=== PATIENT | female | born 1940 | race Caucasian/White ===

== ENCOUNTER → 2017-03-05 | Outpatient (CLI) | payer MEDICARE, MEDICAID ==
[~2017-03-05] MED LIST: ALBU17AE3; ASP325TEC; ATOR40TA; CARV12.52; CLPD75T; FRSM40T; KCL10CCR; LNS30CCR; TELM40T
[2017-03-05 10:52] LABS: BASOPHILS % (AUTO) 0 % (0-10); EOSINOPHILS # (AUTO) 0.1 10^3/uL (0.0-0.3); EOSINOPHILS % (AUTO) 2 % (0-10); LYMPHOCYTES # (AUTO) 0.7 X 10^3 (1.0-4.0); LYMPHOCYTES % (AUTO) 12 % (12-44); MEAN CORPUSCULAR HEMOGLOBIN 26 PG (25-34); MEAN CORPUSCULAR HGB CONC 31 G/DL (32-36); MEAN CORPUSCULAR VOLUME 84 FL (80-99); MEAN PLATELET VOLUME 11.2 FL (7.4-10.4); MONOCYTES # (AUTO) 0.5 X 10^3 (0.0-1.0); MONOCYTES % (AUTO) 9 % (0-12); NEUTROPHILS % (AUTO) 76 % (42-75); PLATELET COUNT 126 10^3/uL (130-400); RED BLOOD COUNT 4.82 10^6/uL (4.35-5.85); RED CELL DISTRIBUTION WIDTH 18.4 % (10.0-14.5); WHITE BLOOD COUNT 5.3 10^3/uL (4.3-11.0)
[2017-03-05 11:16] LABS: ALBUMIN 4.2 G/DL (3.2-4.5); BILIRUBIN,TOTAL 1.8 MG/DL (0.1-1.0); CALCIUM 10.8 MG/DL (8.5-10.1); CREATININE SERUM 1.49 MG/DL (0.60-1.30); POTASSIUM 4.5 MMOL/L (3.6-5.0); TOTAL PROTEIN 7.8 G/DL (6.4-8.2)
== END ==
LOC: LAB 10:12
PROVIDERS: ATTEND Surgery
DX: E11.622 Type 2 diabetes mellitus with other skin ulcer (principal); I89.0 Lymphedema, not elsewhere classified; N18.3 Chronic kidney disease, stage 3 (moderate); I25.10 Atherosclerotic heart disease of native coronary artery without angina pectoris; I73.9 Peripheral vascular disease, unspecified
CPT/HCPCS: 36415; 80053; 80061; 83036; 85025

== ENCOUNTER 2017-03-12 08:35 | Outpatient (RCR) | payer MEDICARE, MEDICAID ==
[2017-03-25] MEDS ORDERED: METF500T4 PO (14:26)
[2017-03-25] MEDS ORDERED: NITR1OIN TD (14:27)
[2017-03-25] MEDS ORDERED: GLYB1.5T2 PO (14:27)
[2017-03-25] MEDS ORDERED: FURO40TA4 PO (17:34)
[2017-03-25] MEDS ORDERED: CLOP75TA28 PO (17:34)
[2017-03-25] MEDS ORDERED: NITR0.4T39 PO (17:34)
[2017-03-25] MEDS ORDERED: METF500T8 PO (17:34)
[2017-03-25] MEDS ORDERED: ALBU18HF2 IH (17:34)
[2017-03-25] MEDS ORDERED: GLYB1.253 PO (17:34)
[2017-03-31] MEDS ORDERED: ATOR80TA76 PO (09:46)
[2017-03-31] MEDS ORDERED: HYDR-3812 PO (09:46)
[2017-03-31] MEDS ORDERED: PANT40TA3 PO (09:46)
[2017-04-17] MEDS ORDERED: LEVO750T39 PO (12:57)
[2017-04-17] MEDS ORDERED: INSU100V5 SQ (13:19)
== END 2017-03-31 16:00 | disposition home or self-care (01) ==
LOC: WOUNDCARE 08:35
PROVIDERS: ATTEND Internal Medicine
DX: I89.0 Lymphedema, not elsewhere classified (principal); E11.622 Type 2 diabetes mellitus with other skin ulcer; N18.3 Chronic kidney disease, stage 3 (moderate); I25.10 Atherosclerotic heart disease of native coronary artery without angina pectoris; I73.9 Peripheral vascular disease, unspecified
CPT/HCPCS: 99205; 99214

== ENCOUNTER 2017-03-25 13:40 | Inpatient (IN) | payer MEDICARE, MEDICAID ==
[2017-03-25] MEDS ORDERED: METF500T4 PO (14:26)
[2017-03-25] MEDS ORDERED: GLYB1.5T2 PO (14:27)
[2017-03-25] MEDS ORDERED: NITR1OIN TD (14:27)
[2017-03-25] MEDS ORDERED: NS IV 1000 ML 1,000 ML IV SCH (14:45)
[2017-03-25] MEDS ORDERED: PANTOPRAZOLE 40 MG/10 ML (PROTONIX) VIAL IV ONE (14:45)
[2017-03-25] MEDS ORDERED: fentaNYL INJECTION 100 MCG/2 ML AMP ONE ×2 (15:08→17:20)
[2017-03-25] MEDS ORDERED: fentaNYL INJECTION 100 MCG/2 ML AMP IVP ONE (15:15)
[2017-03-25] MEDS ORDERED: FUROSEMIDE 40 MG/4 ML INJ (LASIX) IVP ONE (15:45)
[2017-03-25] MEDS ORDERED: NS (IVPB) 250 ML ONE (16:33)
[2017-03-25] MEDS ORDERED: CATHETER FLUSH 10 ML SYR IV PRN (16:45)
[2017-03-25] MEDS ORDERED: NS IV 500 ML 500 ML IV SCH (16:45)
[2017-03-25] MEDS ORDERED: MIDAZOLAM 2 MG/2 ML (VERSED) VIAL ONE ×4 (17:01→17:20)
[2017-03-25] MEDS ORDERED: proPOfol 200 MG/20 ML (DIPRIVAN) VIAL IV ONE ×2 (17:01→18:22)
[2017-03-25] MEDS ORDERED: HURRICAINE EXT TUBE (BENZOCAINE) ONE (17:20)
[2017-03-25] MEDS ORDERED: EPINEPHrine INJECTION 1 MG/ML AMP ONE (17:21)
[2017-03-25] MEDS ORDERED: METF500T8 PO (17:34)
[2017-03-25] MEDS ORDERED: GLYB1.253 PO (17:34)
[2017-03-25] MEDS ORDERED: CLOP75TA28 PO (17:34)
[2017-03-25] MEDS ORDERED: NITR0.4T39 PO (17:34)
[2017-03-25] MEDS ORDERED: FURO40TA4 PO (17:34)
[2017-03-25] MEDS ORDERED: ALBU18HF2 IH (17:34)
[2017-03-25] MEDS ORDERED: FLUMAZENIL (ROMAZICON) 0.1 MG/ML 5 ML VIAL ONE (18:07)
[2017-03-25] MEDS: morphine INJ 4 MG/ML 1 ML (VIAL/SYRINGE) IVP PRN ×2 (20:48→23:29)
[2017-03-25] MEDS: ATORVASTATIN 80 MG (LIPITOR) TABLET PO SCH (20:50)
[2017-03-25] MEDS ORDERED: PANTOPRAZOLE 40 MG/10 ML (PROTONIX) VIAL IV SCH (21:00)
[2017-03-25] MEDS ORDERED: meTOprolol TARTRATE 25 MG (LOPRESSOR) TABLET PO SCH (21:00)
[2017-03-25] MEDS: NS IV 1000 ML 1,000 ML IV SCH (23:47)
[2017-03-25] MEDS: PANTOPRAZOLE INJECTION 200 MG in NS (IVPB) 50 ML IV SCH (23:47)
[2017-03-26] MEDS: NS IV 1000 ML 1,000 ML IV SCH ×3 (02:47→20:30)
[2017-03-26] MEDS: morphine INJ 4 MG/ML 1 ML (VIAL/SYRINGE) IVP PRN ×4 (04:58→18:38)
[2017-03-26] MEDS: MAGNESIUM 1 GM/100 ML IVPB 100 ML IV SCH (05:24)
[2017-03-26] MEDS: POTASSIUM CL 10MEQ/50ML IVPB 50 ML IV SCH (05:24)
[2017-03-26] MEDS: KCL 20 MEQ TAB (K-DUR) PO SCH (05:27)
[2017-03-26] MEDS ORDERED: FUROSEMIDE 40 MG/4 ML INJ (LASIX) IVP NR (14:00)
[2017-03-26] MEDS: PANTOPRAZOLE INJECTION 200 MG in NS (IVPB) 50 ML IV SCH (18:38)
[2017-03-26] MEDS ORDERED: NS (IVPB) 250 ML ONE (18:46)
[2017-03-26] MEDS: ATORVASTATIN 80 MG (LIPITOR) TABLET PO SCH (20:30)
[2017-03-26] MEDS ORDERED: FUROSEMIDE 40 MG/4 ML INJ (LASIX) ONE (21:44)
[2017-03-27] MEDS ORDERED: NS (IVPB) 250 ML ONE (01:40)
[2017-03-27] MEDS: morphine INJ 4 MG/ML 1 ML (VIAL/SYRINGE) IVP PRN ×3 (05:21→13:23)
[2017-03-27] MEDS ORDERED: FUROSEMIDE 40 MG/4 ML INJ (LASIX) IV ONE (05:30)
[2017-03-27] MEDS: NS IV 1000 ML 1,000 ML IV SCH ×2 (06:20→17:24)
[2017-03-27] MEDS: POTASSIUM CL 10MEQ/50ML IVPB 50 ML IV SCH (10:05)
[2017-03-27] MEDS: MAGNESIUM 1 GM/100 ML IVPB 100 ML IV SCH (10:06)
[2017-03-27] MEDS: KCL 20 MEQ TAB (K-DUR) PO SCH (10:06)
[2017-03-27] MEDS: HYDROcodone/APAP 5 MG/325 MG (LORTAB) TAB PO PRN (13:22)
[2017-03-27] MEDS: PANTOPRAZOLE 40 MG/10 ML (PROTONIX) VIAL IV SCH ×2 (13:23→20:28)
[2017-03-27] MEDS: ATORVASTATIN 80 MG (LIPITOR) TABLET PO SCH (20:28)
[2017-03-28] MEDS: NS IV 1000 ML 1,000 ML IV SCH (03:33)
[2017-03-28] MEDS: POTASSIUM CL 10MEQ/50ML IVPB 50 ML IV SCH (04:56)
[2017-03-28] MEDS: KCL 20 MEQ TAB (K-DUR) PO SCH (04:56)
[2017-03-28] MEDS: MAGNESIUM 1 GM/100 ML IVPB 100 ML IV SCH (04:56)
[2017-03-28] MEDS: PANTOPRAZOLE 40 MG (PROTONIX) TAB PO SCH ×2 (05:53→17:37)
[2017-03-28] MEDS: HYDROcodone/APAP 5 MG/325 MG (LORTAB) TAB PO PRN (13:30)
[2017-03-28] MEDS: ATORVASTATIN 80 MG (LIPITOR) TABLET PO SCH (21:02)
[2017-03-29] MEDS: HYDROcodone/APAP 5 MG/325 MG (LORTAB) TAB PO PRN (01:12)
[2017-03-29] MEDS: PANTOPRAZOLE 40 MG (PROTONIX) TAB PO SCH ×2 (06:15→16:02)
[2017-03-29] MEDS: ATORVASTATIN 80 MG (LIPITOR) TABLET PO SCH (21:00)
[2017-03-30] MEDS: PANTOPRAZOLE 40 MG (PROTONIX) TAB PO SCH ×2 (06:20→17:38)
[2017-03-30] MEDS: ATORVASTATIN 80 MG (LIPITOR) TABLET PO SCH (21:34)
[2017-03-30] MEDS: morphine INJ 4 MG/ML 1 ML (VIAL/SYRINGE) IVP PRN (21:37)
[2017-03-31] MEDS: PANTOPRAZOLE 40 MG (PROTONIX) TAB PO SCH (05:58)
[2017-03-31] MEDS ORDERED: PANT40TA3 PO (09:46)
[2017-03-31] MEDS ORDERED: HYDR-3812 PO (09:46)
[2017-03-31] MEDS ORDERED: ATOR80TA76 PO (09:46)
[2017-03-31] MEDS: morphine INJ 4 MG/ML 1 ML (VIAL/SYRINGE) IVP PRN (14:23)
== END 2017-03-31 15:02 | DRG 811 ==
DX: D62 Acute posthemorrhagic anemia (principal); I13.0 Hypertensive heart and chronic kidney disease with heart failure and stage 1 through stage 4 chronic kidney disease, or unspecified chronic kidney disease; I50.21 Acute systolic (congestive) heart failure; I21.4 Non-ST elevation (NSTEMI) myocardial infarction; N18.3 Chronic kidney disease, stage 3 (moderate); K25.4 Chronic or unspecified gastric ulcer with hemorrhage; K26.4 Chronic or unspecified duodenal ulcer with hemorrhage; N17.9 Acute kidney failure, unspecified; Z66 Do not resuscitate; L97.229 Non-pressure chronic ulcer of left calf with unspecified severity; L97.219 Non-pressure chronic ulcer of right calf with unspecified severity; E66.01 Morbid (severe) obesity due to excess calories; Z68.41 Body mass index [BMI] 40.0-44.9, adult; I25.5 Ischemic cardiomyopathy; I25.10 Atherosclerotic heart disease of native coronary artery without angina pectoris; E11.22 Type 2 diabetes mellitus with diabetic chronic kidney disease; M19.91 Primary osteoarthritis, unspecified site; I89.0 Lymphedema, not elsewhere classified; I87.8 Other specified disorders of veins; K44.9 Diaphragmatic hernia without obstruction or gangrene; R53.81 Other malaise; D69.6 Thrombocytopenia, unspecified; Z79.84 Long term (current) use of oral hypoglycemic drugs; Z87.891 Personal history of nicotine dependence

== ENCOUNTER 2017-04-13 20:41 | Inpatient (IN) | payer MEDICARE, MEDICAID ==
[~2017-04-13] VITALS: Ht 172.7 cm; Wt 138.0 kg
[~2017-04-13 20:41] MED LIST changes: -ATOR80TA64 PO; -DOCU-143 PO; -INSU100V5 SQ; -LEVO750T39 PO; -PANT40TA2 PO; -SILV20CR14 TP
--- NOTE | 2017-04-13 20:54 | ED General ---
General Stated Complaint: LOW BLOOD SUGAR Source of Information: Patient Exam Limitations: No Limitations History of Present Illness Time Seen by Provider: 20:52 Initial Comments To ER per EMS from [facility] with unresponsiveness and "foaming at the mouth". Upon arrival EMS found her blood sugar to be "low" on the common her. She was given 25 g of glucose IV. EMS reports that her initial blood pressure was 60s over 40s. On Arrival to ER her blood sugar is 108 and she is now alert and responsive and talking though her speech is still somewhat slurred and difficult to understand. She was recently released from this hospital following an admission for gastrointestinal hemorrhage and in STEMI with a troponin of 40. She underwent upper endoscopy and found to have hemorrhage within the stomach that had stopped by the time of EGD. Given blood transfusion. She is a DO NOT RESUSCITATE status. Timing/Duration: 1 Hour Severity: Moderate Allergies and Home Medications Allergies Coded Allergies: Penicillins (Verified Allergy, Unknown, 03/25/17) amlodipine (Verified Allergy, Unknown, 12/02/07) ezetimibe (Verified Allergy, Unknown, 12/02/07) niacin (Verified Allergy, Unknown, 12/02/07) simvastatin (Verified Allergy, Unknown, 12/02/07) Home Medications Albuterol Sulfate 18 Gm Hfa.aer.ad, 2 PUFF IH Q6H PRN for SHORTNESS OF BREATH, ( Reported) Atorvastatin Calcium 80 Mg Tablet, 40 MG PO HS, #30 Prescribed by: ROXANE LEE on 03/31/17 0946 Clopidogrel Bisulfate 75 Mg Tablet, 75 MG PO DAILY, (Reported) Furosemide 40 Mg Tablet, 80 MG PO DAILY, (Reported) TAKES 2 (40 MG) TABLETS Glyburide 1.25 Mg Tablet, 1.25 MG PO BID PRN for BLOOD SUGAR, (Reported) DOES NOT TAKE IS BLOOD SUGAR IS 120 OR BELOW Hydrocodone/Acetaminophen 1 Each Tablet, 1 TAB PO Q6HR PRN for PAIN-MODERATE, # 30 Prescribed by: ROXANE LEE on 03/31/17 0946 Metformin HCl 500 Mg Tab.er.24h, 500 MG PO BID PRN for BLOOD SUGAR , (Reported) DOES NOT TAKE IF BLOOD SUGAR IS 120 OR BELOW Nitroglycerin 0.4 Mg Tab.subl, 1 TAB PO UD, (Reported) PLACE 1 TABLET UNDER TONGUE EVERY 5 MINUTES PRF CHEST PAIN Pantoprazole Sodium 40 Mg Tablet.dr, 40 MG PO BID@0700,1700 for 30 Days Prescribed by: ROXANE LEE on 03/31/17 0946 Constitutional: see HPI EENTM: see HPI Respiratory: no symptoms reported Cardiovascular: no symptoms reported Genitourinary: no symptoms reported Musculoskeletal: no symptoms reported Skin: no symptoms reported Psychiatric/Neurological: No Symptoms Reported Past Hpuoixy-Yijcje-Rofelp Hx Patient Social History 2nd Hand Smoke Exposure: No Recent Hopitalizations: No Seasonal Allergies Seasonal Allergies: Yes (RAGWEED, COTTONWOOD) Surgeries HX Surgeries: Yes Surgeries: Gallbladder Respiratory Hx Respiratory Disorders: No Respiratory Disorders: COPD Cardiovascular Hx Cardiac Disorders: Yes Cardiac Disorders: Chronic Edema/Swelling, Coronary Artery Disease, Hypertension Neurological Hx Neurological Disorders: No Reproductive System Hx Reproductive Disorders: No Sexually Transmitted Disease: No Genitourinary Hx Genitourinary Disorders: No Gastrointestinal Hx Gastrointestinal Disorders: Yes Gastrointestinal Disorders: Gall Bladder Disease Musculoskeletal Hx Musculoskeletal Disorders: Yes Musculoskeletal Disorders: Arthritis Endocrine Hx Endocrine Disorders: Yes Endocrine Disorders: Diabetes, Non-Insulin dep HEENT HX ENT Disorders: Yes (FATTY GROWTH REMOVED FROM THROAT 1990) Cancer Hx Cancer: No Psychosocial Hx Psychiatric Problems: No Integumentary HX Skin/Integumentary Disorder: No Blood Transfusions Adverse Reaction to a Blood Tr: No Family Medical History Significant Family History: CAD Over 55 Years Old, Diabetes Physical Exam Vital Signs Vital Sign - Last 12Hours 04/13/17 20:45 Temp 97.7 Pulse 61 Resp 18 B/P (MAP) 100/45 Pulse Ox 97 O2 Delivery Nasal Cannula O2 Flow Rate 2.00 Capillary Refill : General Appearance: No Apparent Distress, WD/WN, Chronically ill, Obese Eyes: Bilateral Eye EOMI, Bilateral Eye Normal Inspection, Bilateral Eye PERRL HEENT: PERRL/EOMI, TMs Normal Neck: Full Range of Motion, Normal Inspection Respiratory: Normal Breath Sounds, No Accessory Muscle Use, No Respiratory Distress Cardiovascular: Regular Rate, Rhythm, Normal Peripheral Pulses Neurologic/Psychiatric: Alert, Oriented x3 Skin: Normal Color, Warm/Dry Comments She is alert and oriented and talkative and answers questions appropriately though her speech is somewhat slurred and difficult to understand. Her blood sugar is 108 here. Borderline hypotensive still however at 100/65. Focused Exam Lactic Acid Level Laboratory Tests Test 04/13/17 21:25 Lactic Acid Level 1.05 MMOL/L (0.50-2.00) Progress/Results/Core Measures Results/Orders Lab Results Laboratory Tests Test 04/13/17 20:35 04/13/17 20:46 04/13/17 21:10 04/13/17 21:25 Range/Units White Blood Count 26.1 H 4.3-11.0 10^3/uL Red Blood Count 3.42 L 4.35-5.85 10^6/uL Hemoglobin 9.0 L 11.5-16.0 G/DL Hematocrit 28 L 35-52 % Mean Corpuscular Volume 82 80-99 FL Mean Corpuscular Hemoglobin 26 25-34 PG Mean Corpuscular Hemoglobin Concent 32 32-36 G/DL Red Cell Distribution Width 18.8 H 10.0-14.5 % Platelet Count 192 130-400 10^3/uL Mean Platelet Volume 11.7 H 7.4-10.4 FL Neutrophils (%) (Auto) 97 H 42-75 % Lymphocytes (%) (Auto) 1 L 12-44 % Monocytes (%) (Auto) 2 0-12 % Eosinophils (%) (Auto) 0 0-10 % Basophils (%) (Auto) 0 0-10 % Neutrophils # (Auto) 25.1 H 1.8-7.8 X 10^3 Lymphocytes # (Auto) 0.3 L 1.0-4.0 X 10^3 Monocytes # (Auto) 0.6 0.0-1.0 X 10^3 Eosinophils # (Auto) 0.0 0.0-0.3 10^3/uL Basophils # (Auto) 0.0 0.0-0.1 10^3/uL Neutrophils % (Manual) 71 % Lymphocytes % (Manual) 0 % Monocytes % (Manual) 0 % Eosinophils % (Manual) 0 % Basophils % (Manual) 0 % Band Neutrophils 29 % Blood Morphology Comment NORMAL Sodium Level 128 L 135-145 MMOL/L Potassium Level 6.2 H 3.6-5.0 MMOL/L Chloride Level 102 98-107 MMOL/L Carbon Dioxide Level 15 L 21-32 MMOL/L Anion Gap 11 5-14 MMOL/L Blood Urea Nitrogen 91 H 7-18 MG/DL Creatinine 2.98 H 0.60-1.30 MG/DL Estimat Glomerular Filtration Rate 15 BUN/Creatinine Ratio 31 Glucose Level 91 70-105 MG/DL Calcium Level 9.5 8.5-10.1 MG/DL Total Bilirubin 1.2 H 0.1-1.0 MG/DL Aspartate Amino Transf (AST/SGOT) 62 H 5-34 U/L Alanine Aminotransferase (ALT/SGPT) 36 0-55 U/L Alkaline Phosphatase 156 H 40-136 U/L Troponin I 0.62 *H <0.30 NG/ML Total Protein 6.3 L 6.4-8.2 GM/DL Albumin 2.6 L 3.2-4.5 GM/DL Glucometer 108 70-110 MG/DL Urine Color YELLOW Urine Clarity SLIGHTLY CLOUDY Urine pH 5 5-9 Urine Specific [place] 1.015 L 1.016-1.022 Urine Protein 2+ H NEGATIVE Urine Glucose (UA) NEGATIVE NEGATIVE Urine Ketones NEGATIVE NEGATIVE Urine Nitrite NEGATIVE NEGATIVE Urine Bilirubin 1+ H NEGATIVE Urine Urobilinogen 1 NORMAL MG/DL Urine Leukocyte Esterase 2+ H NEGATIVE Urine RBC (Auto) 3+ H NEGATIVE Urine RBC 2-5 H /HPF Urine WBC 5-10 H /HPF Urine Crystals NONE /LPF Urine Bacteria LARGE H /HPF Urine Casts NONE /LPF Urine Mucus NEGATIVE /LPF Urine Culture Indicated YES Lactic Acid Level 1.05 0.50-2.00 MMOL/L My Orders Orders - PRAFUL SHARPE APRN Cbc With Automated Diff (04/13/17 20:51) Comprehensive Metabolic Panel (04/13/17 20:51) Chest 1 View, Ap/Pa Only (04/13/17 20:51) Ekg Tracing (04/13/17 20:51) Troponin I (04/13/17 20:51) Manual Differential (04/13/17 20:35) Accucheck Stat ONCE (04/13/17 21:05) Ua Culture If Indicated (04/13/17 21:11) Blood Culture (04/13/17 21:19) Lactic Acid Analyzer (04/13/17 21:19) Urine Culture (04/13/17 21:10) Jin Cath Insertion (04/13/17 21:33) Vital Signs/I&O Vital Sign - Last 12Hours 04/13/17 20:45 Temp 97.7 Pulse 61 Resp 18 B/P (MAP) 100/45 Pulse Ox 97 O2 Delivery Nasal Cannula O2 Flow Rate 2.00 Diagnostic Imaging Diagonstic Imaging: Xray Plain Films/CT/US/NM/MRI: chest Comments NAME: [facility] REC#: [id number] PT STATUS: REG ER : 1940 PHYSICIAN: PRAFUL SHARPE APRN ADMIT DATE: 04/13/17/ER Draft Date of Exam:04/13/17 CHEST 1 VIEW, AP/PA ONLY INDICATION: Low blood sugar. EXAMINATION: Chest 04/13/2017. COMPARISON: 03/28/2017. FINDINGS: There is cardiomegaly with pulmonary vasculature congestion. There are findings of edema throughout both lungs with atelectasis or infiltrate in the left lung base. A small effusion is also seen. There is no pneumothorax. IMPRESSION: 1. Pulmonary edema with left base atelectasis or infiltrate as well as small adjacent effusion. Dictated on workstation # [id number] Dict: 04/13/172133 Trans: 04/13/172137 [id number] Interpreted by: EMY BELTRE MD Electronically signed by: Departure Communication Time/Spoke to Admitting Phy: 22:[address] Stephens. We'll admit the patient. Current blood pressure 117/76, heart rate 56, O2 95 percent. We will give one dose of IV Lasix 40 mg. Repeat labs in the morning. Progress Notes I discussed with the patient's ypmffw-df-qzp Heena. Discussed with the patient that we cannot treat the heart failure with much Lasix as this will worsen the hypotension. We cannot give fluids for the hypotension because this will worsen her pulmonary congestion. Antibiotics are unlikely to be helpful here. I did suggest hospice but her xsbpqb-bj-fwy Heena would like the patient to be admitted for IV antibiotics and pursue hospice a later date. Patient is agreeable to whatever her yiwpfe-zh-opl prefers. Impression Impression: Primary Impression: end stage congestive heart failure Additional Impressions: Urinary tract infection Chronic renal failure Cellulitis of lower extremity Disposition: ADMITTED INPATIENT Condition: Critical Decision to Admit Reason: Admit from ER (General) Decision to Admit/Date: Apr 13, 2017 Time/Decision to Admit Time: 22:17 Departure-Patient Inst. Referrals: NO,LOCAL PHYSICIAN (PCP) Primary Care Physician AKSHAT NAVARRETE (Family) Primary Care Physician PRAFUL SHARPE APRN Apr 13, 2017 20:54
[2017-04-13 21:02] LABS: BASOPHILS % (AUTO) 0 % (0-10); EOSINOPHILS % (AUTO) 0 % (0-10); LYMPHOCYTES # (AUTO) 0.3 X 10^3 (1.0-4.0); LYMPHOCYTES % (AUTO) 1 % (12-44); MEAN CORPUSCULAR HEMOGLOBIN 26 PG (25-34); MEAN CORPUSCULAR HGB CONC 32 G/DL (32-36); MEAN CORPUSCULAR VOLUME 82 FL (80-99); MEAN PLATELET VOLUME 11.7 FL (7.4-10.4); MONOCYTES # (AUTO) 0.6 X 10^3 (0.0-1.0); MONOCYTES % (AUTO) 2 % (0-12); NEUTROPHILS # (AUTO) 25.1 X 10^3 (1.8-7.8); NEUTROPHILS % (AUTO) 97 % (42-75); PLATELET COUNT 192 10^3/uL (130-400); RED BLOOD COUNT 3.42 10^6/uL (4.35-5.85); RED CELL DISTRIBUTION WIDTH 18.8 % (10.0-14.5); WHITE BLOOD COUNT 26.1 10^3/uL (4.3-11.0)
[2017-04-13 21:19] LABS: BAND NEUTROPHILS 29 %; BASOPHILS % (MANUAL) 0 %; EOSINOPHILS % (MANUAL) 0 %; LYMPHOCYTES % (MANUAL) 0 %; NEUTROPHILS % (MANUAL) 71 %
[2017-04-13 21:23] LABS: ALBUMIN 2.6 GM/DL (3.2-4.5); BILIRUBIN,TOTAL 1.2 MG/DL (0.1-1.0); CALCIUM 9.5 MG/DL (8.5-10.1); CREATININE SERUM 2.98 MG/DL (0.60-1.30); POTASSIUM 6.2 MMOL/L (3.6-5.0); TOTAL PROTEIN 6.3 GM/DL (6.4-8.2)
[2017-04-13 21:25] LABS: BILIRUBIN,URINE 1+ (NEGATIVE); KETONES,URINE NEGATIVE (NEGATIVE); LEUKOCYTE ESTERASE ,URINE 2+ (NEGATIVE); NITRITE,URINE NEGATIVE (NEGATIVE); PH,URINE 5 (5-9); PROTEIN,URINE 2+ (NEGATIVE); UROBILINOGEN,URINE 1 MG/DL (NORMAL)
--- NOTE | 2017-04-13 21:38 | Diagnostic Imaging Report ---
INDICATION: Low blood sugar. EXAMINATION: Chest 04/13/2017. COMPARISON: 03/28/2017. FINDINGS: There is cardiomegaly with pulmonary vasculature congestion. There are findings of edema throughout both lungs with atelectasis or infiltrate in the left lung base. A small effusion is also seen. There is no pneumothorax. IMPRESSION: 1. Pulmonary edema with left base atelectasis or infiltrate as well as small adjacent effusion. Dictated by: Dictated on workstation # [id number]
[2017-04-13 22:00] LABS: TROPONIN I 0.62 NG/ML (<0.30)
[2017-04-13] MEDS ORDERED: cefTRIAXone INJECTION 1,000 MG in NS (IVPB) 50 ML IV ONE (22:30)
[2017-04-13] MEDS ORDERED: FUROSEMIDE 40 MG/4 ML INJ (LASIX) IVP ONE (22:30)
[2017-04-13 22:50] VITALS: BP 123/74
[2017-04-13 23:00] VITALS: BP 99/68
[2017-04-13 23:15] VITALS: BP 120/56
[2017-04-13 23:30] VITALS: BP 89/65
[2017-04-14] VITALS (14 sets, daily range): BP systolic 80–135; BP diastolic 34–84
[2017-04-14] MEDS: PANTOPRAZOLE 40 MG/10 ML (PROTONIX) VIAL IV SCH ×2 (00:54→08:35)
[2017-04-14] MEDS ORDERED: RT-ALBUTEROL SULF 2.5 MG/3 ML PRE-MIX VIAL IH PRN (02:15)
[2017-04-14 04:17] LABS: BASOPHILS % (AUTO) 0 % (0-10); EOSINOPHILS % (AUTO) 0 % (0-10); LYMPHOCYTES # (AUTO) 0.5 X 10^3 (1.0-4.0); LYMPHOCYTES % (AUTO) 2 % (12-44); MEAN CORPUSCULAR HEMOGLOBIN 26 PG (25-34); MEAN CORPUSCULAR HGB CONC 31 G/DL (32-36); MEAN CORPUSCULAR VOLUME 82 FL (80-99); MEAN PLATELET VOLUME 10.7 FL (7.4-10.4); MONOCYTES # (AUTO) 0.8 X 10^3 (0.0-1.0); MONOCYTES % (AUTO) 3 % (0-12); NEUTROPHILS # (AUTO) 25.9 X 10^3 (1.8-7.8); NEUTROPHILS % (AUTO) 95 % (42-75); PLATELET COUNT 158 10^3/uL (130-400); RED BLOOD COUNT 3.43 10^6/uL (4.35-5.85); WHITE BLOOD COUNT 27.2 10^3/uL (4.3-11.0)
[2017-04-14 04:38] LABS: ALBUMIN 2.8 GM/DL (3.2-4.5); BILIRUBIN,TOTAL 1.2 MG/DL (0.1-1.0); CALCIUM 9.6 MG/DL (8.5-10.1); CREATININE SERUM 2.91 MG/DL (0.60-1.30); POTASSIUM 5.9 MMOL/L (3.6-5.0); TOTAL PROTEIN 6.2 GM/DL (6.4-8.2)
[2017-04-14] MEDS: inSUlin (REGULAR) HUMAN 1 UNIT/0.01 ML (CHARGE PER UNIT) SC SCH ×4 (05:55→22:12)
--- NOTE | 2017-04-14 08:27 | History & Physical ---
History of Present Illness History of Present Illness Reason for visit/HPI 76-year-old female with chronic kidney disease, congestive systolic congestive heart failure, diabetes and anemia admitted late last evening for acute systolic systolic congestive heart failure and acute on chronic renal failure. Patient was brought to the ER from [facility] secondary to hypoglycemic episode. Staff at [facility] found patient slumped over in bed unresponsive. Pupils were reported to be nonreactive and she was reported to be foaming at the mouth. Bedside blood sugar did not register on glucometer; EMS arrived and administered 25 g of glucose IV. On arrival patient 's blood sugar was 108 at the ER and patient was alert and responsive and talking coherently. The day prior to this she was noted to have low oxygen and was placed on 2 L with oxygen saturations remaining in the 97-98 percent range. Patient has oxygen prn as she had supplemental oxygen at the previous hospitalization in mid March. Previous hospitalization, March 26-2016- was for acute GI bleed with noted ulcers seen in the stomach with EGD. Her hemoglobin was down in the fives and received multiple blood transfusions. She was also found to have NSTEMI, kidney failure, heart failure, leg wounds. Of note for this hospitalization patient is taking glyburide and metformin both of which are likely contributing to her acute on chronic renal failure. More specifically the glyburide is likely causing her hypoglycemic episode as it is not being sufficiently cleared by the kidneys. Patient admitted for further workup and evaluation as recommended on previous hospitalization patient should consider palliative care given her multiple comorbidities. Patient was seen by hospitalist service on previous admission but given that the recommendation was hospice at that time patient's family members transferred her care to my service. In evaluating patient's case I would recommend not pursuing aggressive therapy and a palliative care consult has been placed. In the interval will try D5 normal saline to keep her blood sugar up, hydrate kidneys and raise her sodium level. We'll counter the IVF with with Lasix to diurese and low potassium. Will be a difficult case given her congestive heart failure and renal failure. This plan has been discussed with the patient no family members were at bedside. Patient is in agreeance of the plan. -This AM pt reports doing alright; she just wants something for her leg pain. Date of Admission Apr 13, 2017 at 22:14 Time Seen by Provider: 07:30 I consulted on this patient on 04/14/17 08:13 Attending Physician Hernando Phelps MD Admitting Physician No,Local Physician Consult Allergies and Home Medications Allergies Coded Allergies: Penicillins (Verified Allergy, Unknown, 03/25/17) amlodipine (Verified Allergy, Unknown, 12/02/07) egg (Verified Allergy, Unknown, 04/13/17) "throat swelling" ezetimibe (Verified Allergy, Unknown, 12/02/07) niacin (Verified Allergy, Unknown, 12/02/07) simvastatin (Verified Allergy, Unknown, 12/02/07) Home Medications Albuterol Sulfate 18 Gm Hfa.aer.ad, 2 PUFF IH Q6H PRN for SHORTNESS OF BREATH, ( Reported) Atorvastatin Calcium 80 Mg Tablet, 40 MG PO HS, #30 Prescribed by: ROXANE LEE on 03/31/17 0946 Clopidogrel Bisulfate 75 Mg Tablet, 75 MG PO DAILY, (Reported) Furosemide 40 Mg Tablet, 80 MG PO DAILY, (Reported) TAKES 2 (40 MG) TABLETS Glyburide 1.25 Mg Tablet, 1.25 MG PO BID PRN for BLOOD SUGAR, (Reported) DOES NOT TAKE IS BLOOD SUGAR IS 120 OR BELOW Hydrocodone/Acetaminophen 1 Each Tablet, 1 TAB PO Q6HR PRN for PAIN-MODERATE, # 30 Prescribed by: ROXANE LEE on 03/31/17 0946 Metformin HCl 500 Mg Tab.er.24h, 500 MG PO BID PRN for BLOOD SUGAR , (Reported) DOES NOT TAKE IF BLOOD SUGAR IS 120 OR BELOW Nitroglycerin 0.4 Mg Tab.subl, 1 TAB PO UD, (Reported) PLACE 1 TABLET UNDER TONGUE EVERY 5 MINUTES PRF CHEST PAIN Pantoprazole Sodium 40 Mg Tablet.dr, 40 MG PO BID@0700,1700 for 30 Days Prescribed by: ROXANE LEE on 03/31/17 0946 Past Hwkqojy-Kekyrj-Xmemzq Hx Patient Social History Alcohol Use: Denies Use Recreational Drug Use: No Smoking Status: Former Smoker 2nd Hand Smoke Exposure: No Physical Abuse Screen: No Sexual Abuse: No Recent Foreign Travel: No Contact w/other who traveled: No Recent Hopitalizations: Yes Recent Infectious Disease Expo: No Immunizations Up To Date Tetanus Booster (TDap): Unknown Seasonal Allergies Seasonal Allergies: Yes (RAGWEED, COTTONWOOD) Surgeries HX Surgeries: Yes Surgeries: Gallbladder Respiratory Hx Respiratory Disorders: No Cardiovascular Hx Cardiovascular Disorders: Yes Cardiac Disorders: Chronic Edema/Swelling, Coronary Artery Disease, Hypertension Neurological Hx Neurological Disorders: No Reproductive System : No Hx Reproductive Disorders: No Sexually Transmitted Disease: No Genitourinary Hx Genitourinary Disorders: No Genitourinary Disorders: Renal Failure Gastrointestinal Hx Gastrointestinal Disorders: Yes Gastrointestinal Disorders: Gastroesophageal Reflux, Gastrointestinal Bleed, Ulcer, Gall Bladder Disease Musculoskeletal Hx Musculoskeletal Disorders: Yes Musculoskeletal Disorders: Arthritis Endocrine Hx Endocrine Disorders: Yes Endocrine Disorders: Diabetes, Non-Insulin dep HEENT HX ENT Disorders: Yes (FATTY GROWTH REMOVED FROM THROAT 1990) HEENT Disorders: Cataract Hearing Impairment: Hard of Hearing Cancer Hx Cancer: No Psychosocial Hx Psychiatric Problems: No Integumentary HX Skin/Integumentary Disorder: No Blood Transfusions Adverse Reaction to a Blood Tr: No Family Medical History Significant Family History: CAD Over 55 Years Old, Diabetes Family Hx: Alzheimer's disease G8 SISTER, Onset:Unknown Cardiovascular disease 19 FATHER, , Onset:Unknown Diabetes mellitus G8 BROTHER, Onset:Unknown Review of Systems Review of Systems Date Seen by Provider: Apr 14, 2017 Time Seen by Provider: 07:30 General: No Chills, No Night Sweats HEENT: No Head Aches, No Visual Changes Pulmonary: Dyspnea, Cough Cardiovascular: No: Chest Pain, Palpitations Gastrointestinal: No: Abdominal Pain, Nausea, Vomiting Genitourinary: No Dysuria, No Frequency Musculoskeletal: leg pain, No: neck pain, shoulder pain Neurological: Weakness Physical Exam Vital Signs Vital Sign - Last 12Hours 04/13/17 20:45 Temp 97.7 Pulse 61 Resp 18 B/P (MAP) 100/45 Pulse Ox 97 O2 Delivery Nasal Cannula O2 Flow Rate 2.00 General Appearance: No Apparent Distress, Obese Neck: Non Tender, Supple Respiratory: Chest Non Tender, No Accessory Muscle Use, No Respiratory Distress , Decreased Breath Sounds (bases), Rhonci Cardiovascular: Regular Rate, Rhythm Gastrointestinal: Non Tender, Soft Rectal: Deferred Back: Normal Inspection Extremity: Pedal Edema, Swelling, Other (venous stasis- wound on left posterior calf- weeping) Neurologic/Psychiatric: Alert, Oriented x3, Normal Mood/Affect Skin: Normal Color, Warm/Dry Assessment/Plan Assessment/Plan Assessment/Plan 76 yo F *hypoglycemia-diabetes mellitus II secondary to glyburide and kidney failure. D5NS @75ml/hr- until glyburide clears -has SSI *acute on chronic renal failure- avoid nephrotoxic agents, IVF, lasix to diurese - alvares to monitor output *acute on chronic systolic congestive heart failure- balancing IVF with diuresis. recent echo 20-25% LVEF -to follow up with Dr. Street in 2 weeks. -not on DELL I. *acute hypoxic respiratory distress- on 7L NC- monitor closely with giving IVF and CHF- RT consulted CXR in AM *UTI- currently on rocephin- urine culture G- kassandra, blood cultures pending. elevated WBC, afebrile lactic acid 1 *acute anemia- recent GI bleed- monitor hgb *NST-ACS- troponin elevated- likely from renal/resp/cv acute events *morbid obesity- recommend weight loss. *metabolic encephalopathy- resolved with iv glucose *leg wounds- weeping, wound consult (currently sees Dr. Andre- last visit was ) will try morphine 2mg q4hr prn *recent GI bleed- protonix iv- monitor Hgb DVT ppx: chemoppx contraindicated due to recent GI bleed- Code status: DNR Dispo: poor prognosis Patient admitted for further workup and evaluation as recommended on previous hospitalization patient should consider palliative care given her multiple comorbidities. Patient was seen by hospitalist service on previous admission but given that the recommendation was hospice at that time patient's family members transferred her care to my service. In evaluating patient's case I would recommend not pursuing aggressive therapy and a palliative care consult has been placed. In the interval will try D5 normal saline to keep her blood sugar up, hydrate kidneys and raise her sodium level. We'll counter the IVF with Lasix to diurese and lower potassium (although not sure how effective this will be with kidney failure). Will be a difficult case given her concurrent congestive heart failure and renal failure. This plan has been discussed with the patient no family members were at bedside. Patient is in agreeance of the plan. Problems: Clinical Quality Measures DVT/VTE Risk/Contraindication: Risk Factor Score Per Nursin RFS Level Per Nursing on Admit: 4+=Very High HERNANDO PHELPS MD Apr 14, 2017 08:27
[2017-04-14] MEDS: D5 NS 1000 ML IV SOLUTION 1,000 ML IV SCH ×2 (08:35→22:13)
[2017-04-14] MEDS: FUROSEMIDE 40 MG/4 ML INJ (LASIX) IVP SCH (08:35)
[2017-04-14] MEDS: RT-ALBUTEROL/IPRATROPIUM 3 ML (DUONEB) VIAL INH SCH ×3 (10:02→19:07)
[2017-04-14] MEDS: morphine INJ 4 MG/ML 1 ML (VIAL/SYRINGE) IVP PRN (14:51)
[2017-04-14 17:19] LABS: ALBUMIN 2.8 GM/DL (3.2-4.5); CALCIUM 9.6 MG/DL (8.5-10.1); CREATININE SERUM 2.98 MG/DL (0.60-1.30); PHOSPHORUS 5.7 MG/DL (2.3-4.7); POTASSIUM 5.9 MMOL/L (3.6-5.0)
[2017-04-14] MEDS ORDERED: cefTRIAXone INJECTION 1,000 MG in NS (IVPB) 50 ML IV SCH (22:30)
[2017-04-15] MEDS ORDERED: ACETAMINOPHEN 325 MG TABLET/CAPLET (TYLENOL) PO PRN (00:15)
[2017-04-15 03:44] VITALS: BP 107/51
[2017-04-15 05:05] LABS: BASOPHILS % (AUTO) 0 % (0-10); EOSINOPHILS # (AUTO) 0.3 10^3/uL (0.0-0.3); EOSINOPHILS % (AUTO) 1 % (0-10); LYMPHOCYTES # (AUTO) 0.6 X 10^3 (1.0-4.0); LYMPHOCYTES % (AUTO) 2 % (12-44); MEAN CORPUSCULAR HEMOGLOBIN 25 PG (25-34); MEAN CORPUSCULAR HGB CONC 31 G/DL (32-36); MEAN CORPUSCULAR VOLUME 82 FL (80-99); MEAN PLATELET VOLUME 11.4 FL (7.4-10.4); MONOCYTES % (AUTO) 4 % (0-12); NEUTROPHILS # (AUTO) 21.9 X 10^3 (1.8-7.8); NEUTROPHILS % (AUTO) 92 % (42-75); PLATELET COUNT 159 10^3/uL (130-400); RED BLOOD COUNT 3.31 10^6/uL (4.35-5.85); RED CELL DISTRIBUTION WIDTH 19.2 % (10.0-14.5); WHITE BLOOD COUNT 23.8 10^3/uL (4.3-11.0)
[2017-04-15 05:20] LABS: ALBUMIN 2.7 GM/DL (3.2-4.5); CREATININE SERUM 3.12 MG/DL (0.60-1.30); MAGNESIUM 1.9 MG/DL (1.8-2.4); PHOSPHORUS 5.7 MG/DL (2.3-4.7); POTASSIUM 5.8 MMOL/L (3.6-5.0)
[2017-04-15] MEDS: inSUlin (REGULAR) HUMAN 1 UNIT/0.01 ML (CHARGE PER UNIT) SC SCH (06:41)
--- NOTE | 2017-04-15 07:17 | Diagnostic Imaging Report ---
INDICATION: Congestive failure. Comparison with 04/13/2017. FINDINGS: There has been significant decrease in pulmonary edema since previous exam. There continues to be cardiomegaly with median sternotomy changes. There has been slight decrease in pleural effusion. IMPRESSION: 1. Significant overall improvement with clearing of pulmonary edema. 2. Continued cardiomegaly with small bilateral effusions. Dictated by: Dictated on workstation # [id number]
[2017-04-15 08:00] VITALS: BP 134/82
[2017-04-15] MEDS: FUROSEMIDE 40 MG/4 ML INJ (LASIX) IVP SCH (08:10)
[2017-04-15] MEDS: PANTOPRAZOLE 40 MG/10 ML (PROTONIX) VIAL IV SCH (08:10)
[2017-04-15] MEDS ORDERED: PANT40TA2 PO (08:35)
[2017-04-15] MEDS ORDERED: ATOR80TA64 PO (08:35)
[2017-04-15] MEDS ORDERED: DOCU-143 PO (08:35)
[2017-04-15] MEDS ORDERED: SILV20CR14 TP (08:35)
[2017-04-15] MEDS ORDERED: BUMETANIDE 1 MG/4 ML (BUMEX) VIAL IV NR (09:06)
[2017-04-15] MEDS ORDERED: NITROGLYCERIN SUBLINGUAL 0.4 MG TAB (NITROSTAT) SL PRN (09:15)
[2017-04-15] MEDS ORDERED: CEFEPIME INJECTION 2,000 MG in NS (IVPB) 50 ML IV NR (09:24)
--- NOTE | 2017-04-15 09:29 | Progress Note (SOAP) ---
Subjective Subjective Date Seen by Provider: Apr 15, 2017 Time Seen by Provider: 08:30 76 yo F no overnight events - I was notified this AM that pt's blood culture was growing pseudomonas in 1 of 2 bottles. Will switch from ceftriaxone to cefepime. Pt alert oriented and talkative this AM. Still making jokes. Pt aware of the situation and still thinking about what decisions to make. She is more worried about her family as she reports she knows she is going to [facility]. She does not want to but understands her condition is worsening. Pt says she was feeling well but continues to have leg pains. She is tolerating food and liquid. She had a milk shake this AM. Review of Systems General: No Chills, No Night Sweats HEENT: No Head Aches, No Visual Changes Pulmonary: Dyspnea, No Cough Cardiovascular: No: Chest Pain, Palpitations Gastrointestinal: No: Abdominal Pain, Nausea, Vomiting Genitourinary: No Dysuria, No Frequency Musculoskeletal: leg pain, No: neck pain, shoulder pain Neurological: Weakness Objective Exam Vital Signs Vital Signs Date Time Temp Pulse Resp B/P (MAP) Pulse Ox O2 Delivery O2 Flow Rate FiO2 04/15/17 08:00 97.5 78 18 134/82 96 Room Air 04/15/17 03:44 98.0 82 22 107/51 93 Room Air 04/15/17 00:00 Room Air 04/14/17 22:00 99.8 87 22 129/77 94 Room Air 04/14/17 20:10 Room Air 04/14/17 20:00 98.3 78 22 124/73 98 Room Air 04/14/17 19:07 92 Room Air 04/14/17 16:05 98.0 87 22 135/84 98 Room Air 04/14/17 15:25 96.6 04/14/17 14:51 96.6 04/14/17 14:16 93 Room Air 04/14/17 13:50 98 Room Air 04/14/17 13:32 96.6 77 20 113/56 98 Room Air 04/14/17 12:05 Nasal Cannula 3.00 04/14/17 12:00 Room Air 04/14/17 10:02 98 Nasal Cannula 3.00 I & O 04/15/17 07:00 Intake Total 780 ml Output Total 1150 ml Balance -370 ml General Appearance: No Apparent Distress, Obese Eyes: Bilateral Eye EOMI, Bilateral Eye Normal Inspection, Bilateral Eye PERRL HEENT: PERRL/EOMI, TMs Normal Neck: Non Tender, Supple Respiratory: Chest Non Tender, No Accessory Muscle Use, No Respiratory Distress , Decreased Breath Sounds (bases), Rhonci (improved) Cardiovascular: Regular Rate, Rhythm Gastrointestinal: Non Tender, Soft Rectal: Deferred Back: Normal Inspection Extremity: Pedal Edema, Swelling, Other (venous stasis- wound on left posterior calf- weeping) Neurologic/Psychiatric: Alert, Oriented x3, Normal Mood/Affect Skin: Normal Color, Warm/Dry Results Lab Laboratory Tests 04/14/17 11:54: Glucometer 44*L 04/14/17 13:00: Glucometer 68L 04/14/17 16:01: Glucometer 156H 04/14/17 16:57: Sodium Level 128L, Potassium Level 5.9H, Chloride Level 103, Carbon Dioxide Level 15L, Anion Gap 10, Blood Urea Nitrogen 90H, Creatinine 2.98H, Estimat Glomerular Filtration Rate 15, BUN/Creatinine Ratio 30, Glucose Level 149H, Calcium Level 9.6, Phosphorus Level 5.7H, Albumin 2.8L 04/14/17 20:56: Glucometer 164H 04/15/17 04:50: White Blood Count 23.8H, Red Blood Count 3.31L, Hemoglobin 8.4L, Hematocrit 27L , Mean Corpuscular Volume 82, Mean Corpuscular Hemoglobin 25, Mean Corpuscular Hemoglobin Concent 31L, Red Cell Distribution Width 19.2H, Platelet Count 159, Mean Platelet Volume 11.4H, Neutrophils (%) (Auto) 92H, Lymphocytes (%) (Auto) 2L, Monocytes (%) (Auto) 4, Eosinophils (%) (Auto) 1, Basophils (%) (Auto) 0, Neutrophils # (Auto) 21.9H, Lymphocytes # (Auto) 0.6L, Monocytes # (Auto) 1.0, Eosinophils # (Auto) 0.3, Basophils # (Auto) 0.0, Sodium Level 127L, Potassium Level 5.8H, Chloride Level 103, Carbon Dioxide Level 11L, Anion Gap 13, Blood Urea Nitrogen 93H, Creatinine 3.12H, Estimat Glomerular Filtration Rate 15, BUN/ Creatinine Ratio 30, Glucose Level 205H, Calcium Level 9.0, Phosphorus Level 5.7H, Magnesium Level 1.9, Albumin 2.7L 04/15/17 06:36: Glucometer 193H Microbiology 04/13/17 Blood Culture - Preliminary, Resulted No growth 04/13/17 Urine Culture - Final, Complete Klebsiella Pneumoniae See Comments Radiology cxr improved Assessment/Plan Assessment/Plan Assessment/Plan 76 yo F *hypoglycemia-diabetes mellitus II secondary to glyburide and kidney failure. D5NS @75ml/hr- until glyburide clears -has SSI *acute on chronic renal failure- avoid nephrotoxic agents, IVF, lasix to diurese - alvares to monitor output Cr 3 *hyponatremia- NS IVF *hyperkalemia *acute on chronic systolic congestive heart failure- balancing IVF with diuresis. recent echo 20-25% LVEF -CXR improved -to follow up with Dr. Street in 2 weeks. -not on DELL I. *acute hypoxic respiratory distress- on 7L NC- monitor closely with giving IVF and CHF- RT consulted CXR in AM *UTI- d/c'd rocephin 04/15/17 urine culture- klebsiella- elevated WBC- improved , afebrile lactic acid 1 *Bacteremia- 1of2 blood cultures +pseudomonas- cefepime 04/15/17---> will repeat blood cultures in 48 hours; will monitor microbiology report as the urine clx says klebsiella *acute anemia- recent GI bleed- monitor hgb *NST-ACS- troponin elevated- likely from renal/resp/cv acute events *morbid obesity- recommend weight loss. *metabolic encephalopathy- resolved with iv glucose *leg wounds- weeping, wound consult (currently sees Dr. Andre- last visit was ) morphine 2mg q4hr prn *recent GI bleed- protonix iv- monitor Hgb DVT ppx: chemoppx contraindicated due to recent GI bleed- Code status: DNR Dispo: poor prognosis -Pt does not appear septic given the UTI and bacteremia- seems to have improved with the rocephin. Overall though with pt's comorbidities, we are discussing palliative care with patient- will see how current interventions change her status over next 24-48 hours- Pt has a son in [place] that she would like to give him time to get here if she decides palliative. Problems: Clinical Quality Measures DVT/VTE Risk/Contraindication: Risk Factor Score Per Nursin RFS Level Per Nursing on Admit: 4+=Very High Contraindications-Pharm: Other *list below* Contraindications-Mechi: Other *list below* Other: leg wounds recent GI bleed MADELAINE PHELPS MD Apr 15, 2017 09:29
[2017-04-15] MEDS: RT-ALBUTEROL/IPRATROPIUM 3 ML (DUONEB) VIAL INH SCH ×3 (09:49→20:05)
[2017-04-15] MEDS ORDERED: SOD POLYSTERENE 15 GM/60 ML (KAYEXALATE) UNIT DOSE PO NR (09:59)
[2017-04-15] MEDS: inSUlin ASPART (NovoLOG) 1 UNIT/0.01 ML (CHARGE PER UNIT) SC SCH ×3 (10:56→20:55)
[2017-04-15 12:30] VITALS: BP 135/67
[2017-04-15] MEDS: D5 NS 1000 ML IV SOLUTION 1,000 ML IV SCH (13:03)
[2017-04-15 16:00] VITALS: BP 121/73
[2017-04-15 20:00] VITALS: BP 143/64
[2017-04-15] MEDS: morphine INJ 4 MG/ML 1 ML (VIAL/SYRINGE) IVP PRN (20:54)
[2017-04-16] VITALS (7 sets, daily range): BP systolic 117–160; BP diastolic 61–78
[2017-04-16] MEDS: D5 NS 1000 ML IV SOLUTION 1,000 ML IV SCH ×2 (00:40→02:41)
[2017-04-16] MEDS: CEFEPIME INJECTION 1,000 MG in NS (IVPB) 50 ML IV SCH (06:32)
[2017-04-16] MEDS: inSUlin ASPART (NovoLOG) 1 UNIT/0.01 ML (CHARGE PER UNIT) SC SCH ×4 (06:34→20:57)
--- NOTE | 2017-04-16 07:40 | Diagnostic Imaging Report ---
INDICATION: Congestive heart failure. Portable chest 04:46 a.m. 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 Is cardiomegaly. Pulmonary vascularity is within normal limits. Lungs are clear. IMPRESSION: Postsurgical changes of the chest. There is cardiomegaly without evidence of pulmonary venous hypertension. No change compared to previous day. Dictated by: Dictated on workstation # [id number]
[2017-04-16 08:01] LABS: ALBUMIN 2.4 GM/DL (3.2-4.5); CALCIUM 8.3 MG/DL (8.5-10.1); CREATININE SERUM 2.94 MG/DL (0.60-1.30); PHOSPHORUS 5.3 MG/DL (2.3-4.7); POTASSIUM 5.1 MMOL/L (3.6-5.0)
[2017-04-16] MEDS ORDERED: CATHETER FLUSH 10 ML SYR IV PRN (08:45)
--- NOTE | 2017-04-16 09:11 | Progress Note (SOAP) ---
Subjective Subjective Date Seen by Provider: Apr 16, 2017 Time Seen by Provider: 08:30 76 yo F no overnight events - Pt upset that her breakfast was not what she ordered- specifically there was no juice. Pt is getting wore out from not feeling better after all the medical interventions- she has said for 2 days now that she is ready for hospice but is waiting until her son gets here from [place] (which currently is Thursday). Review of Systems General: No Chills, No Night Sweats HEENT: No Head Aches, No Visual Changes Pulmonary: No Dyspnea, No Cough Cardiovascular: No: Chest Pain, Palpitations Gastrointestinal: No: Abdominal Pain, Nausea, Vomiting Genitourinary: No Dysuria, No Frequency Musculoskeletal: leg pain, No: neck pain, shoulder pain Neurological: Weakness Objective Exam Vital Signs Vital Signs Date Time Temp Pulse Resp B/P (MAP) Pulse Ox O2 Delivery O2 Flow Rate FiO2 04/16/17 07:35 98.2 75 18 146/71 97 Room Air 04/16/17 04:00 97.3 86 20 134/61 96 Room Air 04/16/17 00:10 98.2 82 18 119/71 96 Room Air 04/15/17 20:45 Room Air 04/15/17 20:05 Room Air 04/15/17 20:00 99.1 81 24 143/64 93 Room Air 04/15/17 16:00 99.1 91 22 121/73 93 Room Air 04/15/17 15:46 93 Room Air 04/15/17 12:30 97.5 66 20 135/67 95 Room Air 04/15/17 09:49 100 Room Air I & O 04/16/17 07:00 Intake Total 3430 ml Output Total 1250 ml Balance 2180 ml General Appearance: No Apparent Distress, Obese Eyes: Bilateral Eye EOMI, Bilateral Eye Normal Inspection, Bilateral Eye PERRL HEENT: PERRL/EOMI, TMs Normal Neck: Non Tender, Supple Respiratory: Chest Non Tender, No Accessory Muscle Use, No Respiratory Distress , Decreased Breath Sounds (bases), Rhonci (improved) Cardiovascular: Regular Rate, Rhythm Gastrointestinal: Non Tender, Soft Rectal: Deferred Back: Normal Inspection Extremity: Pedal Edema, Swelling, Other (venous stasis- weeping LE wounds.) Neurologic/Psychiatric: Alert, Oriented x3, Normal Mood/Affect Skin: Normal Color, Warm/Dry Results Lab Laboratory Tests 04/15/17 10:48: Glucometer 234H 04/15/17 15:59: Glucometer 182H 04/15/17 20:44: Glucometer 208H 04/16/17 05:29: Glucometer 210H 04/16/17 07:28: Sodium Level 128L, Potassium Level 5.1H, Chloride Level 104, Carbon Dioxide Level 13L, Anion Gap 11, Blood Urea Nitrogen 93H, Creatinine 2.94H, Estimat Glomerular Filtration Rate 16, BUN/Creatinine Ratio 32, Glucose Level 192H, Calcium Level 8.3L, Phosphorus Level 5.3H, Albumin 2.4L 04/16/17 08:07: Microbiology 04/13/17 Blood Culture - Preliminary, Resulted No growth 04/13/17 Urine Culture - Final, Complete Klebsiella Pneumoniae See Comments Assessment/Plan Assessment/Plan Assessment/Plan 76 yo F *hypoglycemia-diabetes mellitus II secondary to glyburide and kidney failure. switched to NS @80ml/hr- as pt's blood sugars have been elevated. -has SSI *acute on chronic renal failure- avoid nephrotoxic agents, IVF, lasix to diurese - alvares to monitor output Cr slighting improved. good UOP. *hyponatremia- NS IVF *hyperkalemia- treated with lasix, kayexelate *acute on chronic systolic congestive heart failure- balancing IVF with diuresis. recent echo 20-25% LVEF -CXR improved - -not on DELL I. *acute hypoxic respiratory distress- on RA- resolved monitor closely with giving IVF and CHF- RT consulted CXR improved *UTI- d/c'd rocephin 04/15/17 urine culture- klebsiella- elevated WBC- improved , afebrile lactic acid 1 *Bacteremia- 1of2 blood cultures +pseudomonas- cefepime 04/15/17---> will considering repeat blood cultures in 48 hours (04/17/17); will monitor microbiology report as the urine clx says klebsiella *acute anemia- recent GI bleed- monitor hgb *NST-ACS- troponin elevated- likely from renal/resp/cv acute events *morbid obesity- recommend weight loss. *metabolic encephalopathy- resolved with iv glucose *leg wounds- weeping, wound consult (currently sees Dr. Andre- last visit was ) morphine 2mg q4hr prn *recent GI bleed- protonix iv- monitor Hgb DVT ppx: chemoppx contraindicated due to recent GI bleed- Code status: DNR Dispo: poor prognosis Overall though with pt's comorbidities, planning to place pt on hospice tomorrow - recommend pt's son come tomorrow instead of Thursday. Will send pt home on levafloxacin to cover UTI and bacteremia for 12 more days. Pt would like to be on home hospice- unsure of agency she would like to use. She does live alone. Problems: Clinical Quality Measures DVT/VTE Risk/Contraindication: Risk Factor Score Per Nursin RFS Level Per Nursing on Admit: 4+=Very High Contraindications-Pharm: Other *list below* Contraindications-Mechi: Other *list below* Other: leg wounds recent GI bleed MADELAINE PHELPS MD Apr 16, 2017 09:11
[2017-04-16] MEDS: NS IV 1000 ML 1,000 ML IV SCH ×2 (09:25→21:26)
[2017-04-16] MEDS: PANTOPRAZOLE 40 MG/10 ML (PROTONIX) VIAL IV SCH (09:25)
[2017-04-16] MEDS: FUROSEMIDE 40 MG/4 ML INJ (LASIX) IVP SCH (09:25)
[2017-04-16] MEDS: RT-ALBUTEROL/IPRATROPIUM 3 ML (DUONEB) VIAL INH SCH (10:17)
[2017-04-16] MEDS ORDERED: RT-ALBUTEROL/IPRATROPIUM 3 ML (DUONEB) VIAL INH PRN (14:00)
[2017-04-16 14:24] LABS: BASOPHILS % (AUTO) 0 % (0-10); EOSINOPHILS # (AUTO) 0.3 10^3/uL (0.0-0.3); EOSINOPHILS % (AUTO) 2 % (0-10); LYMPHOCYTES # (AUTO) 0.6 X 10^3 (1.0-4.0); LYMPHOCYTES % (AUTO) 3 % (12-44); MEAN CORPUSCULAR HEMOGLOBIN 26 PG (25-34); MEAN CORPUSCULAR HGB CONC 32 G/DL (32-36); MEAN CORPUSCULAR VOLUME 81 FL (80-99); MONOCYTES # (AUTO) 1.2 X 10^3 (0.0-1.0); MONOCYTES % (AUTO) 6 % (0-12); NEUTROPHILS # (AUTO) 17.3 X 10^3 (1.8-7.8); NEUTROPHILS % (AUTO) 89 % (42-75); PLATELET COUNT 137 10^3/uL (130-400); RED BLOOD COUNT 3.28 10^6/uL (4.35-5.85); WHITE BLOOD COUNT 19.3 10^3/uL (4.3-11.0)
[2017-04-17] VITALS: BP 125/58
[2017-04-17] MEDS: morphine INJ 4 MG/ML 1 ML (VIAL/SYRINGE) IVP PRN (00:14)
[2017-04-17] MEDS: CEFEPIME INJECTION 1,000 MG in NS (IVPB) 50 ML IV SCH (05:28)
[2017-04-17] MEDS: inSUlin ASPART (NovoLOG) 1 UNIT/0.01 ML (CHARGE PER UNIT) SC SCH ×2 (05:28→11:54)
[2017-04-17 05:40] LABS: BASOPHILS # (AUTO) 0.1 10^3/uL (0.0-0.1); BASOPHILS % (AUTO) 1 % (0-10); EOSINOPHILS # (AUTO) 0.7 10^3/uL (0.0-0.3); EOSINOPHILS % (AUTO) 5 % (0-10); LYMPHOCYTES # (AUTO) 1.7 X 10^3 (1.0-4.0); LYMPHOCYTES % (AUTO) 11 % (12-44); MEAN CORPUSCULAR HEMOGLOBIN 29 PG (25-34); MEAN CORPUSCULAR HGB CONC 34 G/DL (32-36); MEAN CORPUSCULAR VOLUME 85 FL (80-99); MEAN PLATELET VOLUME 10.9 FL (7.4-10.4); MONOCYTES # (AUTO) 1.1 X 10^3 (0.0-1.0); MONOCYTES % (AUTO) 7 % (0-12); NEUTROPHILS # (AUTO) 11.2 X 10^3 (1.8-7.8); NEUTROPHILS % (AUTO) 76 % (42-75); PLATELET COUNT 180 10^3/uL (130-400); RED BLOOD COUNT 4.05 10^6/uL (4.35-5.85); RED CELL DISTRIBUTION WIDTH 16.7 % (10.0-14.5); WHITE BLOOD COUNT 14.8 10^3/uL (4.3-11.0)
[2017-04-17 06:11] LABS: ALBUMIN 2.5 GM/DL (3.2-4.5); CALCIUM 9.2 MG/DL (8.5-10.1); CREATININE SERUM 2.52 MG/DL (0.60-1.30); PHOSPHORUS 5.2 MG/DL (2.3-4.7)
[2017-04-17 08:00] VITALS: BP 117/61
[2017-04-17] MEDS: PANTOPRAZOLE 40 MG/10 ML (PROTONIX) VIAL IV SCH (08:39)
[2017-04-17] MEDS: FUROSEMIDE 40 MG/4 ML INJ (LASIX) IVP SCH (08:39)
[2017-04-17] MEDS ORDERED: inSUlin (REGULAR) HUMAN 1 UNIT/0.01 ML (CHARGE PER UNIT) SC NR (08:48)
[2017-04-17] MEDS ORDERED: DEXTROSE 50% 50 ML (IMS) SYR IV NR (08:48)
[2017-04-17] MEDS ORDERED: SOD POLYSTERENE 15 GM/60 ML (KAYEXALATE) UNIT DOSE PO NR (08:49)
--- NOTE | 2017-04-17 08:55 | Progress Note (SOAP) ---
Subjective Subjective Date Seen by Provider: Apr 17, 2017 Time Seen by Provider: 08:50 76 yo F no overnight events - Pt not happy that she has laid in the bed most of the time. Reports nursing has declined to let her sit up in bed. Also reports we have given her potassium supplements. (we have given her kayexalate to bring K down). Pt not wanting to be in the hospital would like to go home. Review of Systems General: No Chills, No Night Sweats HEENT: No Head Aches, No Visual Changes Pulmonary: No Dyspnea, No Cough Cardiovascular: No: Chest Pain, Palpitations Gastrointestinal: No: Abdominal Pain, Nausea, Vomiting Genitourinary: No Dysuria, No Frequency Musculoskeletal: leg pain, No: neck pain, shoulder pain Neurological: Weakness Objective Exam Vital Signs Vital Signs Date Time Temp Pulse Resp B/P (MAP) Pulse Ox O2 Delivery O2 Flow Rate FiO2 04/17/17 08:00 97.7 78 16 117/61 96 Room Air 04/17/17 07:02 90 Room Air 04/17/17 00:00 98.2 89 24 125/58 93 Room Air 04/16/17 19:33 Room Air 04/16/17 19:20 97.8 75 20 124/71 99 Room Air 04/16/17 16:18 98.9 73 22 123/67 96 Room Air 04/16/17 11:53 96.8 78 20 160/78 99 Room Air I & O 04/17/17 07:00 Intake Total 3960 ml Output Total 1475 ml Balance 2485 ml General Appearance: No Apparent Distress, Obese Eyes: Bilateral Eye EOMI, Bilateral Eye Normal Inspection, Bilateral Eye PERRL HEENT: PERRL/EOMI, TMs Normal Neck: Non Tender, Supple Respiratory: Chest Non Tender, No Accessory Muscle Use, No Respiratory Distress , Decreased Breath Sounds (bases), Rhonci (improved) Cardiovascular: Regular Rate, Rhythm Gastrointestinal: Non Tender, Soft Rectal: Deferred Back: Normal Inspection Extremity: Pedal Edema, Swelling, Other (venous stasis- weeping LE wounds.) Neurologic/Psychiatric: Alert, Oriented x3, Normal Mood/Affect Skin: Normal Color, Warm/Dry Results Lab Laboratory Tests 04/16/17 10:52: Glucometer 199H 04/16/17 14:14: White Blood Count 19.3H, Red Blood Count 3.28L, Hemoglobin 8.4L, Hematocrit 27L , Mean Corpuscular Volume 81, Mean Corpuscular Hemoglobin 26, Mean Corpuscular Hemoglobin Concent 32, Red Cell Distribution Width 19.0H, Platelet Count 137, Mean Platelet Volume 11.0H, Neutrophils (%) (Auto) 89H, Lymphocytes (%) (Auto) 3L, Monocytes (%) (Auto) 6, Eosinophils (%) (Auto) 2, Basophils (%) (Auto) 0, Neutrophils # (Auto) 17.3H, Lymphocytes # (Auto) 0.6L, Monocytes # (Auto) 1.2H, Eosinophils # (Auto) 0.3, Basophils # (Auto) 0.0 04/16/17 16:11: Glucometer 203H 04/16/17 20:41: Glucometer 153H 04/17/17 05:25: White Blood Count 14.8H, Red Blood Count 4.05L, Hemoglobin 11.7#, Hematocrit 35 , Mean Corpuscular Volume 85, Mean Corpuscular Hemoglobin 29, Mean Corpuscular Hemoglobin Concent 34, Red Cell Distribution Width 16.7H, Platelet Count 180, Mean Platelet Volume 10.9H, Neutrophils (%) (Auto) 76H, Lymphocytes (%) (Auto) 11L, Monocytes (%) (Auto) 7, Eosinophils (%) (Auto) 5, Basophils (%) (Auto) 1, Neutrophils # (Auto) 11.2H, Lymphocytes # (Auto) 1.7, Monocytes # (Auto) 1.1H, Eosinophils # (Auto) 0.7H, Basophils # (Auto) 0.1, Sodium Level 131L, Potassium Level 6.0H, Chloride Level 108H, Carbon Dioxide Level 11L, Anion Gap 12, Blood Urea Nitrogen 99H, Creatinine 2.52#H, Estimat Glomerular Filtration Rate 19, BUN /Creatinine Ratio 39, Glucose Level 125H, Calcium Level 9.2, Phosphorus Level 5.2H, Albumin 2.5L 04/17/17 05:26: Glucometer 129H Microbiology 04/13/17 Blood Culture - Preliminary, Resulted No growth 04/13/17 Urine Culture - Final, Complete Klebsiella Pneumoniae See Comments Assessment/Plan Assessment/Plan Assessment/Plan 76 yo F *hypoglycemia-diabetes mellitus II secondary to glyburide and kidney failure. switched to NS @80ml/hr- as pt's blood sugars have been elevated. -has SSI *acute on chronic renal failure- avoid nephrotoxic agents, IVF, lasix to diurese - alvares to monitor output Cr improved *hyponatremia- NS IVF *hyperkalemia- treated with lasix, kayexelate -still elevated *acute on chronic systolic congestive heart failure- balancing IVF with diuresis. recent echo 20-25% LVEF -CXR improved - -not on DELL I. *acute hypoxic respiratory distress- on RA- resolved monitor closely with giving IVF and CHF- RT consulted CXR improved - resolved *UTI- d/c'd rocephin 04/15/17 urine culture- klebsiella- elevated WBC- improved , afebrile lactic acid 1 *Bacteremia- 1of2 blood cultures +pseudomonas- cefepime 04/15/17---> 04/17/17 levofloxacin 04/17/17-05/01/17 *acute anemia- recent GI bleed- monitor hgb *NST-ACS- troponin elevated- likely from renal/resp/cv acute events *morbid obesity- recommend weight loss. *metabolic encephalopathy- resolved with iv glucose *leg wounds- wejosé, wound consult (currently sees Dr. Andre- last visit was ) will send to [facility] with hydrocodone/apap *recent GI bleed- protonix iv- monitor Hgb DVT ppx: chemoppx contraindicated due to recent GI bleed- Code status: DNR Dispo: poor prognosis Overall though with pt's comorbidities, placing pt on hospice -pt's son will be here Thursday. Will send pt to [facility] on levafloxacin to cover UTI and bacteremia - levofloxacin 750mg po q48hrs- stop date 05/01/17 Plan to discharge patient to [facility] this afternoon on [facility]. -will d/c alvares, ivf, labs. -Will order physical therapy at [facility]. Problems: Clinical Quality Measures DVT/VTE Risk/Contraindication: Risk Factor Score Per Nursin RFS Level Per Nursing on Admit: 4+=Very High Contraindications-Pharm: Other *list below* Contraindications-Mechi: Other *list below* Other: leg wounds recent GI bleed MADELAINE PHELPS MD Apr 17, 2017 08:55
[2017-04-17] MEDS ORDERED: LEVOFLOXACIN 750 MG TAB (LEVAQUIN) PO NR (09:05)
[2017-04-17] MEDS: NS IV 1000 ML 1,000 ML IV SCH (09:37)
[2017-04-17] MEDS ORDERED: LEVO750T39 PO (12:57)
--- NOTE | 2017-04-17 13:09 | Discharge Inst-Skilled Nursing ---
Discharge Inst-Skilled NF Patient Instructions Patient Problems: hospice acute on chronic renal failure bacteremia systolic congestive heart failure diabetes mellitus chronic leg wounds Goal: control pain and keep patient comfortable Consult/Follow Up/Orders Follow Up Appt.: 1 month follow up appt at [facility] Skilled NF Admit to: [facility] (with [facility]) Certification (SNF) I certify that SNF services are required to be given on an inpatient basis because of the above named patient's need for [place] [facility] care on a continuing basis for the conditions(s) for which he/she was receiving inpatient hospital services prior to his/her transfer to the SNF. [facility] Facility Order: Nursing Services, [employer]-Evaluate & Treat, Physical Therapy-Evaluate & Treat Discharge Diet: Other Diet (renal diet- low potassium) New & Resume Previous Orders New & Resume Previous Orders -[id number] pad changes on her weeping legs and prn -stop metformin, glyburide (sulfonylurea) -may have hydrocodone/apap 5/325mg q6hr prn pain -complete levofloxacin 750mg q48hrs course for 14 days -Physical therapy to work with patient- goal of getting her to be able to assist transfers. -qAM fasting blood sugar, prn blood sugar checks -Additional orders per [facility]. Hernando Stephens Apr 17, 2017 12:59 Pneu Vac Indicated: Yes HERNANDO STEPHENS MD Apr 17, 2017 13:09
[2017-04-17] MEDS ORDERED: INSU100V5 SQ (13:19)
[2017-04-17 15:20] VITALS: BP 117/61
[2017-04-19] MEDS ORDERED: LEVOFLOXACIN 750 MG TAB (LEVAQUIN) PO SCH (09:00)
--- NOTE | 2017-04-19 16:48 | Discharge Summary ---
Diagnosis/Chief Complaint Date of Admission Apr 13, 2017 at 22:14 Date of Discharge Apr 17, 2017 at 15:30 Discharge Date: Apr 17, 2017 Reason Hospital Visit 76-year-old female with chronic kidney disease, congestive systolic congestive heart failure, diabetes and anemia admitted late last evening for acute systolic systolic congestive heart failure and acute on chronic renal failure. Patient was brought to the ER from [facility] secondary to hypoglycemic episode. Staff at [facility] found patient slumped over in bed unresponsive. Pupils were reported to be nonreactive and she was reported to be foaming at the mouth. Bedside blood sugar did not register on glucometer; EMS arrived and administered 25 g of glucose IV. On arrival patient 's blood sugar was 108 at the ER and patient was alert and responsive and talking coherently. The day prior to this she was noted to have low oxygen and was placed on 2 L with oxygen saturations remaining in the 97-98 percent range. Patient has oxygen prn as she had supplemental oxygen at the previous hospitalization in mid March. Previous hospitalization, March 26-2016- was for acute GI bleed with noted ulcers seen in the stomach with EGD. Her hemoglobin was down in the fives and received multiple blood transfusions. She was also found to have NSTEMI, kidney failure, heart failure, leg wounds. Of note for this hospitalization patient is taking glyburide and metformin both of which are likely contributing to her acute on chronic renal failure. More specifically the glyburide is likely causing her hypoglycemic episode as it is not being sufficiently cleared by the kidneys. Patient admitted for further workup and evaluation as recommended on previous hospitalization patient should consider palliative care given her multiple comorbidities. Patient was seen by hospitalist service on previous admission but given that the recommendation was hospice at that time patient's family members transferred her care to my service. In evaluating patient's case I would recommend not pursuing aggressive therapy and a palliative care consult has been placed. In the interval will try D5 normal saline to keep her blood sugar up, hydrate kidneys and raise her sodium level. We'll counter the IVF with with Lasix to diurese and low potassium. Will be a difficult case given her congestive heart failure and renal failure. This plan has been discussed with the patient no family members were at bedside. Patient is in agreeance of the plan. -This AM pt reports doing alright; she just wants something for her leg pain. Discharge Summary Hospital Course Labs Laboratory Tests 7/6/17 20:41: Glucometer 153H 04/17/17 05:25: White Blood Count 14.8H, Red Blood Count 4.05L, Red Cell Distribution Width 16.7H, Mean Platelet Volume 10.9H, Neutrophils (%) (Auto) 76H, Lymphocytes (%) ( Auto) 11L, Neutrophils # (Auto) 11.2H, Monocytes # (Auto) 1.1H, Eosinophils # ( Auto) 0.7H, Sodium Level 131L, Potassium Level 6.0H, Chloride Level 108H, Carbon Dioxide Level 11L, Blood Urea Nitrogen 99H, Creatinine 2.52#H, Glucose Level 125H, Phosphorus Level 5.2H, Albumin 2.5L 04/17/17 05:26: Glucometer 129H 04/17/17 11:46: Glucometer 168H Procedures None. Discharge Physical Examination Allergies: Coded Allergies: Penicillins (Verified Allergy, Unknown, 03/25/17) amlodipine (Verified Allergy, Unknown, 12/02/07) egg (Verified Allergy, Unknown, 04/13/17) "throat swelling" ezetimibe (Verified Allergy, Unknown, 12/02/07) niacin (Verified Allergy, Unknown, 12/02/07) simvastatin (Verified Allergy, Unknown, 12/02/07) Vitals & I&Os Vital Signs Date Time Temp Pulse Resp B/P (MAP) Pulse Ox O2 Delivery O2 Flow Rate FiO2 04/17/17 15:20 78 16 117/61 96 Room Air 04/17/17 08:00 97.7 04/14/17 12:05 3.00 Discharge Home Medications Reviewed and agree with Discharge Medication list on patient's Discharge Instruction sheet Instructions to Patient/Family Please see electonic discharge instructions given to patient. Clinical Quality Measures DVT/VTE Risk/Contraindication: Risk Factor Score Per Nursin RFS Level Per Nursing on Admit: 4+=Very High Contraindications-Pharm: Other *list below* Contraindications-Mechi: Other *list below* Other: leg wounds recent GI bleed MADELAINE PHELPS MD Apr 19, 2017 16:48
== END 2017-04-17 15:30 | disposition hospice, inpatient (51) | DRG 280 ==
LOC: EDUNIT# 20:41 → ER 20:42 → ICU 22:14 → 4TH 04-14 13:10
PROVIDERS: ADMIT Family Medicine; ATTEND Family Medicine
DX: I13.0 Hypertensive heart and chronic kidney disease with heart failure and stage 1 through stage 4 chronic kidney disease, or unspecified chronic kidney disease (principal); I50.23 Acute on chronic systolic (congestive) heart failure; N17.9 Acute kidney failure, unspecified; N39.0 Urinary tract infection, site not specified; G93.41 Metabolic encephalopathy; I21.4 Non-ST elevation (NSTEMI) myocardial infarction; R78.81 Bacteremia; N18.9 Chronic kidney disease, unspecified; Z66 Do not resuscitate; Z68.41 Body mass index [BMI] 40.0-44.9, adult; E87.1 Hypo-osmolality and hyponatremia; E87.2 Acidosis; L97.929 Non-pressure chronic ulcer of unspecified part of left lower leg with unspecified severity; B96.1 Klebsiella pneumoniae [K. pneumoniae] as the cause of diseases classified elsewhere; E87.5 Hyperkalemia; R09.02 Hypoxemia; I25.10 Atherosclerotic heart disease of native coronary artery without angina pectoris; J44.9 Chronic obstructive pulmonary disease, unspecified; D64.9 Anemia, unspecified; J30.2 Other seasonal allergic rhinitis; T38.3X5A Adverse effect of insulin and oral hypoglycemic [antidiabetic] drugs, initial encounter; R47.81 Slurred speech; M19.91 Primary osteoarthritis, unspecified site; E11.649 Type 2 diabetes mellitus with hypoglycemia without coma; E66.01 Morbid (severe) obesity due to excess calories; H91.90 Unspecified hearing loss, unspecified ear; Z79.84 Long term (current) use of oral hypoglycemic drugs; Z87.891 Personal history of nicotine dependence; Z87.11 Personal history of peptic ulcer disease
CPT/HCPCS: 36415; 51702; 71010; 80053; 80069; 81000; 82962; 83605; 83735; 84484; 85007; 85025; 85027; 87040; 87077; 87088; 87186; 93005; 94640; 94760; 96374; 96375

== ENCOUNTER → 2017-04-13 | Outpatient (CLI) | payer MEDICARE, MEDICAID ==
[~2017-04-13] MED LIST changes: +ALBU18HF2 IH; +ATOR80TA64 PO; +ATOR80TA76 PO; +CLOP75TA28 PO; +DOCU-143 PO; +FURO40TA4 PO; +GLYB1.253 PO; +GLYB1.5T2 PO; +HYDR-3812 PO; +INSU100V5 SQ; +LEVO750T39 PO; +METF500T4 PO; +METF500T8 PO; +NITR0.4T39 PO; +NITR1OIN TD; +PANT40TA2 PO; +PANT40TA3 PO; +SILV20CR14 TP
[2017-04-13 10:31] LABS: MEAN PLATELET VOLUME 11.6 FL (7.4-10.4); RED BLOOD COUNT 3.53 10^6/uL (4.35-5.85); RED CELL DISTRIBUTION WIDTH 18.7 % (10.0-14.5); WHITE BLOOD COUNT 21.5 10^3/uL (4.3-11.0)
== END ==
LOC: CVS 10:17
PROVIDERS: ATTEND Family Medicine
DX: I10 Essential (primary) hypertension (principal)
CPT/HCPCS: 85027